=== PATIENT | male | born 1955 | race Hispanic/Latino ===

== ENCOUNTER → 2023-07-11 10:56 | Outpatient (CLI) | payer MEDICARE, OTHER, SELFPAY ==
[2023-07-11 11:51] LABS: Urine Volume 10mL (spun)
[2023-07-11 12:12] LABS: Add Manual Diff / Slide Review NO; Basophils Absolute Auto 100 /uL (0-100); Basophils Percent Auto 1.3 % (0-2); Eosinophils Absolute Auto 500 /uL (0-450); Eosinophils Percent Auto 6.4 % (2-4); Hemoglobin 15.1 g/dL (13.5-17.5); Lymphocytes Absolute Auto 1700 /uL (1100-4500); Lymphocytes Percent Auto 22.5 % (25-40); Mean Corpuscular HGB Conc 33.7 % (30-36); Mean Corpuscular Volume 98.1 fL (80-100); Monocytes Absolute Auto 700 /uL (0-900); Monocytes Percent Auto 9.2 % (3-14); Neutrophils Absolute Auto 4600 /uL (1500-7000); Neutrophils Percent Auto 60.6 % (50-75); Platelet Count 225 X10^3/uL (150-400); Red Blood Cell Count 4.59 X10^6/uL (4.5-5.9); Red Cell Distribution Width 13.5 % (11.6-14.8); White Blood Cell Count 7.6 X10^3/uL (4.5-11.0)
[2023-07-11 12:20] LABS: Hemoglobin A1C% w Est Avg Glu 5.9 % (4.0-6.0)
[2023-07-11 12:21] LABS: Appearance Urine UA CLEAR; Bilirubin Urine UA NEGATIVE (NEGATIVE); Color Urine UA YELLOW; Glucose Urine UA NEGATIVE (Negative); Ketones Urine UA NEGATIVE (NEGATIVE); Leukocyte Esterase Urine UA NEGATIVE (NEGATIVE); Nitrite Urine UA NEGATIVE (Negative); Occult Blood Urine UA NEGATIVE (Negative); Protein Urine UA NEGATIVE (Negative); Specific Gravity Urine UA 1.025 (1.000-1.035); Urobilinogen Urine UA 0.2 E.U./dL (0.2); pH Urine UA 5.5 (4.5-8.0)
[2023-07-11 12:26] LABS: Bacteria Urine None Seen; Culture Indicated Urine Cult Not Indicated; RBC Urine None Seen (0-5/HPF); Squamous Epithelial Cell Urine None Seen (0-5/HPF); WBC Urine None Seen (0-5/HPF)
[2023-07-11 12:33] LABS: BUN Creatinine Ratio 20.6 (6-22); Blood Urea Nitrogen 28 mg/dL (9-20); Calcium 10.7 mg/dL (8.4-10.2); Carbon Dioxide 29 mmol/L (22-32); Chloride 102 mmol/L (98-107); Estimated Glomerular Filt Rate 57 mL/min (>60); Glucose 142 mg/dL (80-110); HEMOLYSIS < 15 (0-50); Sodium 140 mmol/L (137-145)
[2023-07-11 13:17] LABS: Potassium 5.5 mmol/L (3.4-5.1)
== END ==
LOC: LAB 11:00
PROVIDERS: PCP Family Medicine; Referring Provider Orthopaedic Surgery; Visit Provider Orthopaedic Surgery
DX: Z01.818 Encounter for other preprocedural examination (principal); R73.9 Hyperglycemia, unspecified; Z01.812 Encounter for preprocedural laboratory examination; N39.0 Urinary tract infection, site not specified
CPT/HCPCS: 36415; 80048; 81001; 83036; 85025; 93005

== ENCOUNTER 2023-08-22 11:17 | Day surgery (SDC) | payer MEDICARE, OTHER, SELFPAY ==
[2023-08-15 12:09] VITALS: BMI 29.0
[2023-08-22] VITALS (8 sets, daily range): BP systolic 121–158; BP diastolic 66–82; PULSE 56–84; RESP 14–16; TEMP 36.1–36.9; O2SAT 92–97; BMI 29.0; BMI 30.9
--- NOTE | 2023-08-22 | DI.RAD.S_ITS ---
PROCEDURE: XR HIP W PEL IF DONE RT 2V INDICATIONS: post op right hip TECHNIQUE: AP pelvis and lateral view of the hip acquired. COMPARISON: [facility], CR, XR PELVIS 1-2V, 08/22/2023, 15:29. [facility], MR, MR HIP RIGHT WITHOUT CONTRAST, 05/23/2023, 11:27. [facility] [place], RF, HIP INJECTION, 03/01/2023, 9:24. [facility] [place], CR, XR PELVIS WITH BILATERAL LATERAL HIPS, 02/20/2023, 11:34. FINDINGS: Bones: Patient is status post right hip arthroplasty, with hardware components in expected positions. The hip joint appears congruent. The visualized bony structures appear intact. Soft tissues: Overlying postoperative changes are noted. No suspicious soft tissue densities. IMPRESSION: Dictated by: Ninfa Perez M.D. on 08/22/2023 at 17:24 Approved by: Ninfa Perez M.D. on 08/22/2023 at 17:25
--- NOTE | 2023-08-22 06:00 | DI.RAD.S_ITS ---
PROCEDURE: XR PELVIS 1-2V INDICATIONS: total right hip intra op TECHNIQUE: Intra-operative view of the pelvis and hip acquired. COMPARISON: [facility], CR, XR HIP W PEL IF DONE RT 2V, 08/22/2023, 16:21. [facility] Outside Film, MR, MR HIP RIGHT WITHOUT CONTRAST, 05/23/2023, 11:27. [facility] [place], RF, HIP INJECTION, 03/01/2023, 9:24. [facility] [place], CR, XR PELVIS WITH BILATERAL LATERAL HIPS, 02/20/2023, 11:34. FINDINGS: Bones: Intraoperative devices prior to placement of arthroplasty prostheses are in expected positions. No fractures or suspicious bony lesions. Soft tissues: Overlying surgical retractors are present, along with other intraoperative changes. IMPRESSION: Intraoperative right hip arthroplasty. Dictated by: Ninfa Perez M.D. on 08/22/2023 at 20:25 Approved by: Ninfa Perez M.D. on 08/22/2023 at 20:25
[2023-08-22] MEDS: ACETAMINOPHEN 325 MG TABLET 975 MG PO (11:52)
[2023-08-22] MEDS: CELECOXIB 200 MG CAPSULE PO (11:52)
[2023-08-22] MEDS: VANCOMYCIN 1,000 MG/200 ML PIGGYBACK 200 MG IV (11:53)
[2023-08-22] MEDS: LACTATED RINGERS 1,000 ML 42 ML IV ×2 (11:53→15:53)
[2023-08-22 12:07] LABS: Prothrombin Time 11.2 SECONDS (9.4-12.5)
[2023-08-22 12:08] LABS: Add Manual Diff / Slide Review NO; Basophils Absolute Auto 0 /uL (0-100); Basophils Percent Auto 0.6 % (0-2); Eosinophils Absolute Auto 500 /uL (0-450); Eosinophils Percent Auto 7.3 % (2-4); Hematocrit 45.9 % (41-53); Hemoglobin 15.7 g/dL (13.5-17.5); Lymphocytes Absolute Auto 1600 /uL (1100-4500); Mean Corpuscular HGB Conc 34.2 % (30-36); Mean Corpuscular Hemoglobin 33.2 PG (26-34); Monocytes Absolute Auto 500 /uL (0-900); Monocytes Percent Auto 7.1 % (3-14); Neutrophils Absolute Auto 4600 /uL (1500-7000); Platelet Count 224 X10^3/uL (150-400); Red Blood Cell Count 4.73 X10^6/uL (4.5-5.9); Red Cell Distribution Width 12.8 % (11.6-14.8); White Blood Cell Count 7.2 X10^3/uL (4.5-11.0)
[2023-08-22] MEDS: ALBUTEROL/IPRATROPIUM 3 ML AMPUL INH (12:09)
[2023-08-22 12:13] LABS: BUN Creatinine Ratio 19.3 (6-22); Blood Urea Nitrogen 23 mg/dL (9-20); Carbon Dioxide 27 mmol/L (22-32); Chloride 105 mmol/L (98-107); Estimated Glomerular Filt Rate > 60 mL/min (>60); Glucose 132 mg/dL (80-110); HEMOLYSIS 18 (0-50); Potassium 4.6 mmol/L (3.4-5.1); Sodium 139 mmol/L (137-145)
--- NOTE | 2023-08-22 13:22 | SUR.OPER ---
Lateral on padded OR bed. Gel axillary roll. Arms secured on padded armboard with pillow supporting top arm. Padded hip positioner braces x4 - anterior and posterior chest and pelvis. Additional gel pad used anterior pelvis. Gel pad under bottom leg from knee to foot and secured with tape over sheet.
--- NOTE | 2023-08-22 13:47 | PM.PREOP ---
Pre-operative Note Interval Note History & Physical reviewed/Exam performed by Physician: Yes Changes to H&P: No
--- NOTE | 2023-08-22 14:01 | P.OP_ITS ---
Operative Date/Time/Diagnoses Date of procedure: 08/22/23 Time of procedure: 14:30 Pre-op diagnosis: Right hip OA Post-op diagnosis: same Procedure & Clinicians Procedure: Right total hip arthroplasty posterior approach Same procedure as scheduled: Yes Indications: The patient has had progressively worsening right hip pain with radiographic changes consistent with arthritis. Non-operative management has failed and the patient has requested total hip replacement. The risks, benefits and alternatives to surgery were discussed with the patient prior to proceeding. Risks discussed included, but were not limited to, failure to relieve pain, leg length discrepancy, dislocation, stiffness, infection, nerve damage, deep venous thrombosis, pulmonary embolism, stroke, coma, heart attack, permanent paralysis and , as well as the potential need for eventual revision of the prosthetic. Surgeon: Ramona Kidd [employer] Supervisor: Mckenzie Castellano Anesthesia Type: General Operative Notes Findings: Severe right hip OA stiff hip, adequate bone adequate stability Closure Type: primary Specimen(s): none sent Prosthetic devices, grafts, tissues, transplants, or devices: [employer] polar stem standard size 2, 52mm R3, neutral poly liner,one 6.5 mm screw, 36 by -3 oxinium Estimated Blood Loss (mL): 250 Blood products transfused: none Procedure in detail: The patient was seen in the pre-operative area, where the patient identified the right hip as the operative site and this was marked with my initials. The patient received pre-operative antibiotics and was taken to the operating room and placed on the operative table in the left lateral decubitus position after satisfactory anesthesia. A fulling machine operator out? was performed. The right leg was prepared from the ankle to the iliac crest with ChloroPrep in the usual fashion and draped through sterile drapes. A PA was used during the procedure and was essential for intraoperative retraction and safe implantation of the components. The hip was approached through an approximately 20 cm incision centered over the greater trochanter and curving gently posteriorly as it went proximally. This was carried sharply to the fascia nini, which was divided and retracted with a self retaining retractor. The trochanteric bursa was excised with care being taken to avoid the sciatic nerve, which was identified and protected throughout the case. The short external rotators were incised and the capsulomuscular flap was raised and tagged for later repair. The hip was dislocated, and a femoral neck osteotomy performed approximately 15 mm above the lesser trochanter. Retractors were placed around the femur. The canal was opened with a box cutting osteotome, followed by a T handled reamer and a lateralizing reamer. The chili pepper broach was then used, followed by sequential broaching until there was good stability of the broach in the femur. Retractors were placed to expose the acetabulum. The labrum and central soft tissues were removed. Reaming was performed initially going up in 2 mm increments, then 1 mm increments until good bite was obtained with an odd sized reamer. The cup 1 mm larger than the last reamer was then inserted using the gray ropriate anteversion guides. It was further stabilized with a single screw. A trial neutral liner was placed. The broach was placed in the canal. A trial head and neck were then placed and the hip relocated and checked for leg length and stability. An intraoperative film confirmed the component position and no evidence of fracture. The patient was stable in the position of sleep, of squatting, and could be put through a range of motion with 45 degrees internal rotation without dislocation. At 90 degrees flexion, internal rotation to 70 degrees was possible before dislocation. This was felt to be satisfactory and the appropriate components were opened, and the trials were removed. The acetabular liner was impacted into position. The final stem was then impacted into the prepared femoral canal. A brief Betadine soak was performed while trialing with head options. The hip was meticulously irrigated with normal saline. Finally the femoral head was impacted onto the stem. The acetabulum was cleared of all material and the hip relocated one final time. The capsulomuscular flap was then repaired to the greater trochanter though an awl hole using the tag sutures. The short external rotators were repaired with a nonabsorbable suture. The fascia nini was closed with Vicryl. The subcutaneous layer was closed with barbed sutures and surgical glue. An Aquacel Ag dressing was applied and the patient was taken to recovery having tolerated the procedure well. Complications: none Post-operative Condition: stable Disposition: Acute Care Plan for aftercare: The patient will be maintained on a standard total hip replacement protocol with weight bearing as tolerated and posterior hip precautions. The patient will receive Aspirin and sequential compression devices for DVT prophylaxis. The patient will be discharged home when safe for the home environment.
[2023-08-22] MEDS: TRANEXAMIC ACID 1,000 MG VIAL 1000 MG INJ ×2 (14:40→15:55)
[2023-08-22] MEDS: CEFAZOLIN 2 GM/100 ML PREMIX 100 ML IV ×2 (14:40→22:14)
[2023-08-22] MEDS: BUPIVACAINE LIPOSOME 266 MG/20 ML VIAL INJ (14:53)
[2023-08-22] MEDS: BUPIVACAINE 0.25% (PF) 60 ML, EPINEPHrine 0.3 MG INJ (14:53)
[2023-08-22] MEDS: SODIUM CHLORIDE IRRIG SOLUTION 250 ML, EPINEPHrine 1 MG IRR (14:55)
[2023-08-22] MEDS: ACETAMINOPHEN 325 MG TABLET 650 MG PO (17:06)
[2023-08-22] MEDS: OXYCODONE IR 5 MG TABLET PO (17:06)
[2023-08-22] MEDS: LACTATED RINGERS 1,000 ML 100 ML IV (17:09)
[2023-08-22] MEDS: OXYCODONE IR 10 MG TABLET PO ×2 (18:06→21:33)
[2023-08-22] MEDS: CYCLOBENZAPRINE 10 MG TABLET PO (18:19)
--- NOTE | 2023-08-22 18:44 | PC.NURSE ---
Pt arrived to the floor at 1645 from the OR. Pt was oriented to the room, call sequeira within reach. Pt has pair of black colored glasses, dentures in denture box, home CPAP machine, cell phone, cellphone charging cables, and power block. Pt has clothes, shoes, and sweatshirt/jacket.
[2023-08-22] MEDS: PANTOPRAZOLE DR 20 MG TABLET PO (21:33)
[2023-08-22] MEDS: ASPIRIN EC 81 MG TABLET PO (21:33)
[2023-08-22] MEDS: DOCUSATE 100 MG CAPSULE PO (21:33)
[2023-08-22] MEDS: TAMSULOSIN 0.4 MG CAPSULE 0.8 MG PO (21:33)
[2023-08-22] MEDS: METOPROLOL IR 25 MG TABLET PO (21:33)
[2023-08-22] MEDS: METFORMIN HCL 500 MG TABLET 1000 MG PO (21:33)
[2023-08-22] MEDS: ZOLPIDEM 5 MG TABLET 10 MG PO (21:33)
[2023-08-22] MEDS: ATORVASTATIN 20 MG TABLET 10 MG PO (21:34)
[2023-08-22] MEDS: INSULIN LISPRO 100 UNIT/ML 3ML VIAL 15 UNIT SUBCUT (21:41)
[2023-08-22] MEDS: INSULIN REGULAR 100 UNIT/ML 3 ML VIAL SUBCUT (21:42)
[2023-08-23 00:44] VITALS: BP 119/74; PULSE 89; RESP 16; TEMP 36.8; O2SAT 95
[2023-08-23 05:57] LABS: Hematocrit 38.1 % (41-53); Hemoglobin 13.2 g/dL (13.5-17.5)
[2023-08-23] MEDS: OXYCODONE IR 5 MG TABLET PO (06:06)
[2023-08-23] MEDS: IBUPROFEN 400 MG TABLET PO (06:07)
[2023-08-23] MEDS: ACETAMINOPHEN 325 MG TABLET 650 MG PO (06:07)
[2023-08-23] MEDS: PANTOPRAZOLE DR 20 MG TABLET PO (06:07)
[2023-08-23] MEDS: CEFAZOLIN 2 GM/100 ML PREMIX 100 ML IV (06:13)
--- NOTE | 2023-08-23 07:00 | PC.NURSE ---
Addendum entered by Tana Kidd R.N. 08/23/23 07:03: ladle cleaner notified. Will pass on to day shift staff for further care / evaluation. Original Note: RN was notified by patient of a painful rash in groin, Picture noted below. Pt denies itching or soreness. But tender to palpation. Pt VS WNL no fever, denies chills, chest pain, SOB, or any tingling sensation.
--- NOTE | 2023-08-23 07:29 | PM.DS.1 ---
History of Present Illness History of Present Illness Date Patient Seen: 08/23/23 Time Patient Seen: 07:29 Chief complaint: Right ANGIE *OPB* Narrative: Procedure: Right total hip arthroplasty posterior approach Same procedure as scheduled: Yes Indications: The patient has had progressively worsening right hip pain with radiographic changes consistent with arthritis. Non-operative management has failed and the patient has requested total hip replacement. The risks, benefits and alternatives to surgery were discussed with the patient prior to proceeding. Risks discussed included, but were not limited to, failure to relieve pain, leg length discrepancy, dislocation, stiffness, infection, nerve damage, deep venous thrombosis, pulmonary embolism, stroke, coma, heart attack, permanent paralysis and , as well as the potential need for eventual revision of the prosthetic. Surgeon: Ramona Kidd Pad Cutter: Mckenzie Castellano Anesthesia Type: General Operative Notes Findings: Severe right hip OA stiff hip, adequate bone adequate stability Closure Type: primary Specimen(s): none sent Prosthetic devices, grafts, tissues, transplants, or devices: [employer] polar stem standard size 2, 52mm R3, neutral poly liner,one 6.5 mm screw, 36 by -3 oxinium Estimated Blood Loss (mL): 250 Blood products transfused: none Discharge Providers Provider Date of admission: 08/22/2023 Discharge Date: 08/23/23 Primary care physician: Regis Jones DO Consults: 08/22/23 06:00 Consult to Anesthesiology Routine Comment: Consulting Provider: Anesthesiologist Reason for consultation: Regional block for post operative pain control Has provider been notified: No 08/22/23 16:45 Consult to Discharge Planning Routine Comment: Consult to Occupational Therapy Evaluate & Treat Comment: Physician Instructions: Evaluate and treat Consult to Physical Therapy Evaluate & Treat Comment: Physician Instructions: post op ANGIE protocol Discharge provider: Mick Jewell PA-C Summary Hospital Course Discharge Diagnosis: Status post right hip arthroplasty posterior approach Hospital Course: Multimodal pain control. Physical therapy. Status at Discharge Cognitive/behavioral status at discharge: oriented Functional status at discharge: uses cane/walker Overall status at discharge: patient is back to baseline Time Spent with Patient Time spent: Less than 30 minutes Exam Vital Signs (past 8 hours): - 08/23/23 00:44 Temperature 98.2 F Pulse Rate 89 Respiratory Rate 16 Blood Pressure 119/74 Pulse Oximetry 95 Oxygen Flow Rate 0 Oxygen Delivery Method Room Air Oxygen Flow Rate 0 Narrative Exam Narrative: Patient is found lying comfortably in bed awake. Complaints today is primarily along the right inguinal canal. The region is tender to touch but denies any pain with urination. Pain increases with manipulation of lower extremity. Examination of dressing appears to be well-maintained no signs of drainage. No warmth or increase in pain noted when compression along the posterior thigh and calf. Patient is able to dorsiflex and plantar flex against resistance at the right ankle. Sensation is grossly intact with the right lower extremity. Const General: cooperative and comfortable Resp Effort & Inspection: normal respiratory effort and able to speak in complete sentences Objective Labs 08/23/23 05:30 08/22/23 Unknown Labs: Laboratory Results - last 24 hr 08/22/23 08/22/23 08/22/23 11:36 11:50 Unknown WBC 7.2 RBC 4.73 Hgb 15.7 Hct 45.9 MCV 97.0 MCH 33.2 MCHC 34.2 RDW 12.8 Plt Count 224 Neut % (Auto) 63.0 Lymph % (Auto) 22.0 L Stanley % (Auto) 7.1 Eos % (Auto) 7.3 H Baso % (Auto) 0.6 Neut # (Auto) 4600 Lymph # (Auto) 1600 Stanley # (Auto) 500 Eos # (Auto) 500 H Baso # (Auto) 0 PT 11.2 INR 1.0 Sodium 139 Potassium 4.6 Chloride 105 Carbon Dioxide 27 BUN 23 H Creatinine 1.19 Estimated GFR > 60 BUN/Creatinine Ratio 19.3 Glucose 132 H Calcium 10.0 08/23/23 05:30 WBC RBC Hgb 13.2 L Hct 38.1 L MCV MCH MCHC RDW Plt Count Neut % (Auto) Lymph % (Auto) Stanley % (Auto) Eos % (Auto) Baso % (Auto) Neut # (Auto) Lymph # (Auto) Stanley # (Auto) Eos # (Auto) Baso # (Auto) PT INR Sodium Potassium Chloride Carbon Dioxide BUN Creatinine Estimated GFR BUN/Creatinine Ratio Glucose Calcium [facility] Medical History (Updated 08/15/23 @ 12:55 by Moni Gates RN) History of COVID-19 (2022) Osteoarthritis Fatty liver Enlarged prostate GERD (gastroesophageal reflux disease) HLD (hyperlipidemia) HTN (hypertension) ANN on CPAP Neuropathy RLS (restless legs syndrome) Concussion Ringing in ears Dizziness History of seizures (1999) Diabetes Syncopal episodes PTSD (post-traumatic stress disorder) Depression Anxiety Surgical History (Updated 08/15/23 @ 12:42 by Moni Gates RN) S/P cervical spinal fusion (2008) S/P cervical spinal fusion (2008) S/P cervical spinal fusion (2009) History of arthroscopy of left shoulder History of arthroscopy of right shoulder Hx of arthroscopy of left knee Hx of arthroscopy of right knee Hx of cervical spine surgery Social History household members: spouse and children Smoking Status: Never smoker alcohol intake: former Discharge Assessment & Plan Assessment and Plan Assessment: Status post right hip arthroplasty posterior approach Plan of Treatment: Patient has already received oxycodone 5 mg take 1 tablet every 4 hours as needed for postoperative pain. Patient may also take ibuprofen 400 mg every 4 hours for inflammation. Patient is to take aspirin 81 mg 1 pill twice a day for DVT prophylaxis. Patient will start physical therapy in 5-7 days outpatient. Patient will follow up with us in in 2 weeks for wound check. Discharge Plan Discharge Plan Patient Disposition: Home Provider Discharge Comment: DC pending PT approval. Discharge orders & Medications Discharge Orders: Discharge (Order); Ordered 08/23/23 Ordered By: Mick Jewell Prescriptions: New aspirin 81 mg Tablet,Delayed Release (Dr/Ec) 81 mg PO BID Qty: 90 0RF Continued cyclobenzaprine 10 mg Tablet 10 mg PO TID PRN (Reason: Muscle Spasm) simvastatin 20 mg Tablet 20 mg PO BEDTIME ferrous sulfate 325 mg (65 mg iron) Tablet 325 mg PO DAILY metformin 1,000 mg Tablet 1,000 mg PO BID magnesium 250 mg Tablet 500 mg PO DAILY albuterol sulfate 90 mcg/actuation Hfa Aerosol Inhaler 2 puff INHALATION Q4-6H PRN (Reason: Shortness Of Breath) insulin aspart U-100 [Novolog FlexPen U-100 Insulin] 100 unit/mL (3 mL) Insulin Pen 15 unit SUBCUT TID metoprolol tartrate 25 mg Tablet 25 mg PO BID Januvia 100 mg Tablet 100 mg PO DAILY insulin glargine [Lantus Solostar U-100 Insulin] 100 unit/mL (3 mL) Insulin Pen 42 unit SUBCUT QAM Patient Comments: 20 units this morning omeprazole 20 mg Tablet,Delayed Release (Dr/Ec) 20 mg PO BID ropinirole 6 mg Tablet Extended Release 24 Hr 6 mg PO BEDTIME buprenorphine 7.5 mcg/hour Patch Weekly 1 patch TRANSDERMAL QWEEK tamsulosin 0.4 mg Capsule 0.8 mg PO BEDTIME zolpidem 12.5 mg Tablet,Ext Release Multiphase 12.5 mg PO BEDTIME PRN (Reason: Sleep) vortioxetine 20 mg Tablet 20 mg PO BEDTIME Discontinued aspirin [Aspir-81] 81 mg Tablet,Delayed Release (Dr/Ec) 81 mg PO DAILY Follow up/Referrals: Regis Jones DO [Primary Care Provider] - Ramona Kidd MD [Physician] - 09/06/23 2:00 pm (Follow up w/ Bradford Jewell PA-C, at [facility] [place] office in [place].) Diet/Activity/Treatments Diet: Diet as Tolerated Activity: Weightbearing as tolerated to right leg. Posterior hip precautions. Cold/Heat Therapy: Ice to hip as needed for pain. Skin/Wound/Dressing Care Report to your healthcare provider any signs of infection, such as:: chills, fever, night sweats, unusual drainage and unusual redness Dressing: May shower. Leave dressing in place until follow up in office. No bathing or otherwise soaking incision. Call the office if the dressing becomes saturated inside. Visit Report/Discharge Packet Instructions: DI for Hip Replacement Stand Alone Forms: Patient Portal/API, Surgery Discharge Discharge Data Primary Care Provider: Regis Jones Attending Provider: Ramona Kidd Quality VTE Deep Vein Thrombosis/Pulmonary Embolism Present on Admission: No
[2023-08-23 08:05] VITALS: BP 121/71; PULSE 76; RESP 19; TEMP 36.4; O2SAT 97
[2023-08-23] MEDS: FERROUS SULFATE 325 MG TABLET PO (09:21)
[2023-08-23] MEDS: METOPROLOL IR 25 MG TABLET PO (09:23)
[2023-08-23] MEDS: MAGNESIUM OXIDE 400 MG TABLET PO (09:23)
[2023-08-23] MEDS: ASPIRIN EC 81 MG TABLET PO (09:24)
[2023-08-23] MEDS: DOCUSATE 100 MG CAPSULE PO (09:29)
--- NOTE | 2023-08-23 10:45 | PT.IIE ---
Current Diagnoses Unilateral primary osteoarthritis, right hip (08/22/23) Surgery Performed Operation Date: 08/22/23 13:45 Actual Procedures p Total Hip Arthroplasty(Right) - Ramona Kidd MD Surgical History (Last Updated 08/15/23 @ 12:42 by Moni Gates, RN) History of arthroscopy of left shoulder History of arthroscopy of right shoulder Hx of arthroscopy of left knee Hx of arthroscopy of right knee Hx of cervical spine surgery S/P cervical spinal fusion (2009) S/P cervical spinal fusion (2008) S/P cervical spinal fusion (2008) Medical History (Last Updated 08/15/23 @ 12:55 by Moni Gates, RN) Anxiety Concussion Depression Diabetes Dizziness Enlarged prostate Fatty liver GERD (gastroesophageal reflux disease) History of COVID-19 (2022) History of seizures (1999) HLD (hyperlipidemia) HTN (hypertension) Neuropathy ANN on CPAP Osteoarthritis PTSD (post-traumatic stress disorder) Ringing in ears RLS (restless legs syndrome) Syncopal episodes Physical Therapy Inpatient Evaluation/Re-Eval M1 PT/OT-IP Prior Functional Status Start: 08/23/23 13:29 Freq: NEEDED Status: Active Protocol: Document 08/23/23 10:45 AB (Rec: 08/23/23 13:41 AB [id number]) Medical Review Prior Functional Status Medical History Reviewed Yes Communication able to make needs known Mobility and Gait pt stated that he was indpeendent with all mobilities and ambulation wthout AD but uses a SPC for outdoor mobility Social History Household Members spouse,children Living Arrangements House Number of Floors (Floors) One Floor Number of Stairs To Enter/Railing? 2 steps B rails to enter the house Home Environment Standard Height Toilet,Walk in Shower Home Equipment Front Wheel Walker,Four Wheel Walker,Straight Cane,Raised Toilet Seat w/Armrests,Shower Seat without Backrest,Hand Held Shower,Grab Bars Near Toilet,Grab Bars In Shower M2 PT-IP Current Condition Start: 08/23/23 13:29 Freq: NEEDED Status: Active Protocol: Document 08/23/23 10:45 AB (Rec: 08/23/23 13:41 AB [id number]) Physical Therapy Current Condition Current Condition Evaluation Date 08/23/23 Treatment Diagnosis s/p R ANGIE posterior; difficulty in walking Onset Date 08/22/23 M3 PT-IP Subjective Start: 08/23/23 13:29 Freq: NEEDED Status: Active Protocol: Document 08/23/23 10:45 AB (Rec: 08/23/23 13:41 AB [id number]) Subjective Physical Therapy Visit Type Type Initial Evaluation Visit Start Time 10:45 Visit Stop Time 11:35 Number of CHANNELER OUTSOLE Visits 0 Physical Therapy Visit Comments Patient Comments agreeable to do PT Therapy Pain Assessment Pain When Pain Assessed At Rest Location Right Hip Intensity 7 Scale Used Numeric (0 - 10) Pain Management Techniques Distraction,Modification of Treatment,Re-positioning, Timing of Activity with Medications M4 PT-IP Mobility and Gait Start: 08/23/23 13:29 Freq: NEEDED Status: Active Protocol: Document 08/23/23 10:45 AB (Rec: 08/23/23 13:41 AB [id number]) PT-Bed Mobility Assessment Supine to Sit Supine to Sit Standby Assistance Sit to Supine Sit to Supine Standby Assistance PT-Transfer Assessment Sit to and From Stand Sit to and from Stand Standby Assistance,Contact Guard Assistance,1 Person Assistance,Use of Upper Extremities Equipment Transfer Assistive Device Gait Belt,Front Wheeled Walker Orthotic/Prosthetic Devices or Brace: No Transfers Transfer Destination Bed,Chair Transfer Technique ambulated Transfer Ability Level of Assist Standby Assistance Comments Mobility Comments pt sitting on the chair. agreed to do PT. obtained PLOF and home set up from pt. provided pt with post-op folder and reviewed contents. educated pt regarding R posterior hip precautions. pt completed sit to stand from the chair CGA and cues for precautions. pt ambulated in room using FWW ~ 30 ft initial CGA but able to ambulate SBA after a few feet. pt sat on EOB. completed bed mobility sit<>supine SBA. pt completed sit to stand from EOB SBA and ambulated in the hallway using FWW SBA. stair climbing training. educated pt on how to do stairs. completed up/down steps using bilateral rails SBA. pt ambulated back to his room SBA using fWW. pt sat on chair. postiioned on the chair. call light and table placed within reach. Gait Assessment Gait Gait Assistance Required: Standby Assistance,Contact Guard Assist Distance (Feet) 250 Able to Maintain Weight Bearing Status Yes During Gait Assistive Devices Assistive Device Gait Belt,Front Wheeled Walker Orthotic/Prosthetic Devices or Brace: No Gait Deviations General Gait Pattern Decreased Stride Length, Decreased Feet Clearance,Step- to Gait Factors Limiting Gait Function Factors Limiting Gait Function Decreased Activity Tolerance, Decreased Strength,Difficulty Following Directions,Limited Range of Motion,Pain,Poor Balance,Poor Safety Awareness Stair Climbing Assessment Evaluation Level of Assist On Stairs Standby Assistance,Contact Guard Assistance Devices Stair Climbing Assistive Devices Left Railing,Right Railing Technique/Endurance Stair Climbing Direction Ascend and Descend Stair Climbing Technique Step to Step Number of Steps Climbed 3 Query Text: Stair Climbing Set # Repetitions (reps) 1 PT-Balance Assessment Sitting Balance and Reactions Static Sitting Balance Ability Normal Dynamic Sitting Balance Ability Normal Standing Balance and Reactions Static Standing Balance Ability Good Dynamic Standing Balance Ability Fair Device Used FWW M5 PT-IP Objective Assessments Start: 08/23/23 13:29 Freq: NEEDED Status: Active Protocol: Document 08/23/23 10:45 AB (Rec: 08/23/23 13:41 AB [id number]) Orientation Orientation/Cognition Level of Alertness Alert Orientation Name,Place,Situation Language Function Ability No Deficits Noted Safety Awareness Decreased Safety Awareness Memory Description Short Term Impaired Gross Range of Motion Lower Extremity ROM Assessment Within Functional Limits Strength Lower Extremity Strength Hip 3+/5 Knee 4-/5 Coordination Assessment Gross Coordination Gross Coordination WNL Sensation Assessment Sensation Gross Sensation WNL Muscle Tone Muscle Tone WNL Yes M6 PT-IP Treatment Start: 08/23/23 13:29 Freq: NEEDED Status: Active Protocol: Document 08/23/23 10:45 AB (Rec: 08/23/23 13:41 AB [id number]) Physical Therapy Treatment Education Education Provided Precautions,Weight Bearing Status,Post-Op Packet,Safety M7 PT-IP Assessment and Plan Start: 08/23/23 13:29 Freq: NEEDED Status: Active Protocol: Document 08/23/23 10:45 AB (Rec: 08/23/23 13:41 AB [id number]) PT Summary Assessment and Plan Potential Rehabilitation Potential Fair Status of Condition at Evaluation Stable Summary Impairments Pain,ROM,Strength,Balance, Coordination,Sensation,Tone, Cognition,Bed Mobility, Transfers,Gait,Activity Tolerance Assessment Summary pt is a 68 y/o M s/p R ANGIE posterior approach POD 1. pt has R hip posterior precautions and is WBAT. pt requiring SBA to CGA with mobility using fWW and may go home when medically stable. pt has hisr spouse and daughter to assist him and has outpt PT set up. Goals Bed Mobility Goal Independent Transfer Goal Independent,Front Wheeled Walker Gait Goal Independent,Front Wheel Walker Gait Distance 300 Other Goals up/down 2 steps B rails mod I Days to Meet Goals 5 Frequency of Treatment Frequency Of Treatment Twice a Day Treatment Plan Physical Therapy Treatment Plan Bed Mobility Training,Transfer Training,Gait Training, Therapeutic Exercise,Balance Retraining,Post Op Education, Discharge Planning,Hot or Cold Pack,Neuromuscular Re-ed, Coordination Retraining,Manual Therapy Precautions Posterior Hip Precautions No Hip Flexion > 90 degrees,No Hip Internal Rotation,No Hip Adduction Weight Bearing Status Weight Bearing Status Weight Bear as Tolerated Allowed Weight Bearing Amount (enter % RLE WBAT or #) (%) Recommendations To Nursing Amount of Assist Needed 1 Person Assist Discharge Recommendations PT Discharge Recommendations Home with Assistance, Outpatient PT Transportation Needs at Discharge Private Vehicle
[2023-08-23] MEDS: INSULIN REGULAR 100 UNIT/ML 3 ML VIAL SUBCUT (11:47)
--- NOTE | 2023-08-23 12:00 | OT.IP.EVAL ---
Current Diagnoses Unilateral primary osteoarthritis, right hip (08/22/23) Surgery Performed Operation Date: 08/22/23 13:45 Actual Procedures p Total Hip Arthroplasty(Right) - Ramona Kidd MD Past Medical History (Last Updated 08/15/23 @ 12:55 by Moni Gates, RN) Anxiety Concussion Depression Diabetes Dizziness Enlarged prostate Fatty liver GERD (gastroesophageal reflux disease) History of COVID-19 (2022) History of seizures (1999) HLD (hyperlipidemia) HTN (hypertension) Neuropathy ANN on CPAP Osteoarthritis PTSD (post-traumatic stress disorder) Ringing in ears RLS (restless legs syndrome) Syncopal episodes Surgical History (Last Updated 08/15/23 @ 12:42 by Moni Gates, ÁNGEL) History of arthroscopy of left shoulder History of arthroscopy of right shoulder Hx of arthroscopy of left knee Hx of arthroscopy of right knee Hx of cervical spine surgery S/P cervical spinal fusion (2009) S/P cervical spinal fusion (2008) S/P cervical spinal fusion (2008) Occupational Therapy Inpatient Evaluation/Re-Eval M1 PT/OT-IP Prior Functional Status Start: 08/23/23 13:45 Freq: NEEDED Status: Active Protocol: Document 08/23/23 13:46 [facility] (Rec: 08/23/23 14:04 [facility] [id number]) Medical Review Prior Functional Status Medical History Reviewed Yes Communication able to make needs known Mobility and Gait pt stated that he was independent with all mobilities and ambulation without AD but uses a SPC for outdoor mobility Activities of Daily Living and IADL's Pt able to do all ADL and IADl needs but had pain. Social History Household Members spouse,children Living Arrangements House Number of Floors (Floors) One Floor Number of Stairs To Enter/Railing? 2 steps B rails to enter the house Home Environment Standard Height Toilet,Walk in Shower Home Equipment Front Wheel Walker,Four Wheel Walker,Straight Cane,Raised Toilet Seat w/Armrests,Shower Seat without Backrest,Hand Held Shower,Long Handled Sponge,Long Handled Shoe Horn, Angio Technologist,Grab Bars Near Toilet, Grab Bars In Shower Employment Status Retired M2 OT-IP Current Condition Start: 08/23/23 13:45 Freq: Status: Active Protocol: Document 08/23/23 13:46 [facility] (Rec: 08/23/23 14:04 [facility] [id number]) Occupational Therapy Current Condition Current Condition Evaluation Date 08/23/23 Treatment Diagnosis S/P R ANGIE posterior Diagnosis Onset Date 08/21/22 Post Operative Precautions Posterior Hip Precautions No Hip Flexion > 90 degrees,No Hip Internal Rotation,No Hip Adduction Other Precautions In Dr. Kidd's Operative report , pt to have posterior precautions, however on the orders states pt to have Anterior precautions. Able to call the surgery office to clarify- staff states to let Dr. Kidd know and they were able to verify that it is posterior approach. M3 OT- IP Subjective and Pain Start: 08/23/23 13:45 Freq: Status: Active Protocol: Document 08/23/23 13:46 [facility] (Rec: 08/23/23 14:04 [facility] [id number]) OT- Subjective Occupational Therapy Visit Type Type Initial Evaluation Visit Start Time 12:00 Visit Stop Time 12:25 Occupational Therapy Visit Comments Patient Comments Pt agreed to get dressed. Patient/Caregiver Goals To go home. OT Pain Assessment Pain When Pain Assessed At Rest Pain Present Pain Present Pain Reported M4 OT- IP ADL's Start: 08/23/23 13:45 Freq: Status: Active Protocol: Document 08/23/23 13:46 [facility] (Rec: 08/23/23 14:04 [facility] [id number]) OT KKA-[id number] General Evaluation Self-Feeding Ability Independent OT ADL-Grooming Comments OT Grooming Comments Pt did prior. OT ADL-Oral Care Comments Oral Care Comments Not performed. OT ADL-Dressing General Eval Upper Body Dressing Ability Independent Lower Body Dressing Ability Minimal Assistance Comments OT Dressing Comments Able to practice use of adoption services manager and showed pt use of sock aid in which pt is considering getting or just have his assist. Pt needing assist to help slip on his tie shoes. Educated to dress his RLE first and take out last. OT ADL-Toileting Comments OT Toileting Comments Educated pt to be mindful of his hip positioning needs while wiping. Suggested use of wet-one and standing to best follow his hip precautions. OT ADL-Bathing Comments OT Bathing Comments Pt not wanting to shower at this time. M5 OT- IP IADL's Start: 08/23/23 13:45 Freq: Status: Active Protocol: Document 08/23/23 13:46 [facility] (Rec: 08/23/23 14:04 [facility] [id number]) OT-Instrumental Activities of Daily Living Deficits IADL Deficits Identified Deficits Home Safety Awareness Awareness of Need for Assistance at Home Good Awareness Ability to Problem Solve Emergency Able to Problem Solve Situations Medication Management Medication Management No Deficits Identified Money Management Money Management No Deficits Identified Meal Preparation Meal Preparation Caregiver Provides Assist Cook Helper Fruit Cook Helper Fruit Caregiver Provides Assist M6 OT- IP Functional Cognition Start: 08/23/23 13:45 Freq: Status: Active Protocol: Document 08/23/23 13:46 [facility] (Rec: 08/23/23 14:04 [facility] [id number]) Cognitive Factors Limiting Selfcare Function Cognitive Ability Level of Alertness Alert Patient Orientation Name,Age,Birthday,Month,Date, Year,Day of Week,Place, Situation Attention Span Ability Capable of Focused Attention, Capable of Sustained Attention Ability to Follow Commands Able to Follow Multi-Step Commands Memory Description No Deficits Noted Safety Awareness No Deficits Noted Cognitive Comments Cognitive Assessment Comments Pt intact, able to state and incorporate his hip precautions for ADL and mobility needs. OT- Vision and Hearing OT- Hearing Assessment OT- Hearing Assessment WFL M7 OT- IP Mobility and Balance Start: 08/23/23 13:45 Freq: Status: Active Protocol: Document 08/23/23 13:46 [facility] (Rec: 08/23/23 14:04 [facility] [id number]) OT-Transfer Assessment Sit to and From Stand Sit to and from Stand Independent Comments Mobility Comments Pt able to independently stand to the FWW for all dressing needs. OT- Balance Assessment Sitting Balance and Reactions Static Sitting Balance Ability Normal Dynamic Sitting Balance Ability Good Standing Balance and Reactions Static Standing Balance Ability Good M8 OT- IP Objective Assessments Start: 08/23/23 13:45 Freq: Status: Active Protocol: Document 08/23/23 13:46 [facility] (Rec: 08/23/23 14:04 [facility] [id number]) OT Strength Upper Extremity Strength Assessment Right Impaired Comments Strength Comments Pt has old biceps tendon injury M9 OT- IP Assessment and Plan Start: 08/23/23 13:45 Freq: Status: Active Protocol: Document 08/23/23 13:46 [facility] (Rec: 08/23/23 14:04 [facility] [id number]) OT Summary Assessment and Plan Potential Rehabilitation Potential Excellent Analytic Complexity at Evaluation Low Summary OT Impairments Pain,Strength,Balance, Functional Mobility,Dressing, Bathing Progress Towards Goals Progressing Toward Goals Assessment Summary Pt doing well and able to go over OT needs for ADL's and reiterate safety to follow for ADL needs. Pt to go home with his and have outpt PT. Goals Dressing Goal Independent,Long Handled Shoe Horn,Angio Technologist,Sock Aid Toileting Goal Independent Bathing Goal Independent Toilet Transfer Goal Independent Shower Transfer Goal Independent Days to Meet Goals 5 Frequency of Treatment Frequency Of Treatment Once a Day Treatment Plan OT Treatment Plan ADL Training,Functional Mobility,Patient/Family Education,Discharge Planning Discharge Recommendations OT Discharge Recommendations Home with Assistance, Outpatient PT Transportation Needs at Discharge Private Vehicle
--- NOTE | 2023-08-23 13:00 | PC.NURSE ---
Pt stable post op course. Dsg to right hip area CDI Worked w/ PT D/C orders recieved. SL D/C intact. Home instructions given w/ understanding Pt escorted by staff, via W/C to waiting vehicle D/C in stable post op status.
--- NOTE | 2023-08-23 14:46 | CM.DANOTE ---
Discharge Planning/Care Management CM Discharge Assessment Start: 08/23/23 14:42 Freq: Status: Active Protocol: Document 08/23/23 14:42 JONATAN (Rec: 08/23/23 14:46 JONATAN [id number]) Discharge Planning Assessment Assigned Calculus Professor ART Velez DPOA/Assigned Designee Name Haleigh Lewis, spouse Contact Information [phone] Advance Directives? Yes Advance Directives on File No History Provided By Patient,Family Member,Medical Record Prior Living Arrangements House Household Members spouse,children Type of transporation used prior to Drives own vehicle admit Independent with ADL's Yes Is patient alert and oriented? Yes Patient/Family Preference OP PT Therapy Barriers to Discharge No Comment POD1 from right ANGIE; patient planned for return home w/ family to assist and therapy cleared patient for this plan. No needs from this CM team identified. Discharge Plan Home Transportation Arrangement Family Referrals Initiated None needed
== END 2023-08-23 13:00 | disposition home or self-care (01) ==
LOC: OR 11:18 → AC 11:18
PROVIDERS: Student in an Organized Health Care Education/Training Program; PCP Family Medicine; Referring Provider Orthopaedic Surgery; Visit Provider Orthopaedic Surgery
PROC: 0SR90JZ Replacement of Right Hip Joint with Synthetic Substitute, Open Approach (ICD-10-PCS; CPT 27130; principal; 2023-08-22 13:45)
DX: M16.11 Unilateral primary osteoarthritis, right hip (principal)
CPT/HCPCS: 27130; 36415; 72170; 73502; 80048; 82962; 85014; 85018; 85025; 85610; 93005; 93010; 97116; 97161; 97165; 97530; 97535; C1776; C9290; J0171; J0690; J1170; J1815; J2405; J2704; J3010; J3490